=== PATIENT | female | born 1995 | race Two or more races ===

== ENCOUNTER 2018-08-17 02:00 | Emergency (ER) | payer OTHER ==
--- NOTE | 2018-08-17 03:00 | EDPHY ---
H & P Stated Complaint: left forearm lac Time Seen by Provider: 08/17/18 02:06 HPI/ROS: Chief Complaint: Arm laceration HPI: 22-year-old woman sustained a self-inflicted laceration to her left forearm. Patient states she was in an argument with her boyfriend after she found out that he had been cheating on her. Patient admits to drinking 2 shots of alcohol tonight. Patient became upset and caught herself on her left forearm with a kitchen knife while she was washing dishes. Patient states that she cut her arm deeper than she had anticipated. Patient states that she tends to act out of impulse. She does have a history cutting in the past. She absolutely denies being suicidal. She is not want harm herself or others. She only cut herself in he did the moment. No prior suicide attempts. She is scheduled to start seeing a counselor next week. She has not have a history of depression. She is not feeling depressed. She is up-to-date on her tetanus. ROS: 10 systems were reviewed and were negative except those elements noted in the HPI. PMH: Denies Social History: No smoking, occasional alcohol, no recreational drug use Family History: non-contributory Physical Exam: Gen: Awake, Alert, No Distress HEENT: Nose: no rhinorrhea Eyes: PERRLA, EOMI Mouth: Moist mucosa Neck: Supple, no JVD Chest: nontender, lungs clear to auscultation Heart: S1, S2 normal, no murmur Abd: Soft, non-tender, no guarding Back: no CVA tenderness, no midline tenderness Ext: Patient has a deep 8 cm laceration on her left forearm going into the subcutaneous fat and muscle. There is no tendon involvement. I have full range of motion of her flexors without any defect. She has full flexion strength in all of her digits proximally and distally. 2+ radial ulnar pulses. Capillary refills less than 2 sec. Sensation is intact in the radial, median , and ulnar nerve distribution. Skin: no rash Neuro: CN II-XII intact, Sensation grossly intact, Strength 5/5 in bilateral upper and lower extremities - Personal History LMP (Females 10-55): Now Current Tetanus/Diphtheria Vaccine: Unsure Current Tetanus Diphtheria and Acellular Pertussis (TDAP): Unsure - Medical/Surgical History Hx Asthma: No Hx Chronic Respiratory Disease: No Hx Diabetes: No Hx Cardiac Disease: No Hx Renal Disease: No Hx Cirrhosis: No Hx Alcoholism: No Hx HIV/AIDS: No Hx Splenectomy or Spleen Trauma: No Other PMH: denies - Social History Smoking Status: Never smoked Constitutional: Initial Vital Signs Temperature (C) 36.9 C 08/17/18 02:06 Heart Rate 100 08/17/18 02:06 Respiratory Rate 16 08/17/18 02:06 Blood Pressure 123/92 H 08/17/18 02:06 O2 Sat (%) 98 08/17/18 02:06 O2 Delivery Mode Room Air Allergies/Adverse Reactions: No Known Allergies Allergy (Unverified 08/17/18 02:09) Home Medications: Medication Instructions Recorded NK [No Known Home Meds] 08/17/18 Medical Decision Making Procedures: Procedure: Laceration repair. Verbal consent was obtained from the patient. The 8 cm laceration on the left forearm was anesthetized in the usual fashion. The wound was irrigated, draped and explored to its base with a gloved finger. There were no deep structures involved. No tendon injury was identified. The wound was repaired with 14, 4- 0 Ethilon simple interrupted sutures. The wound repair was uncomplicated. The procedure was performed by myself. ED Course/Re-evaluation: Patient presenting with a self-inflicted forearm laceration. Patient admits that she did this Ativan pulse. She denies suicide attempt. She denies being suicidal. Patient states she was angry after the cheating with her boyfriend. She does not want to kill herself. She is excited about leaving tomorrow for a trip for her since 21 sec birthday with her friends. She is hayley for safety. Patient has been given discharge in and wound care instructions. Sutures to be removed in 10 days. Departure - Departure Disposition: Home, Routine, Self-Care Clinical Impression: Forearm laceration Condition: Good Instructions: Laceration (ED), Care For Your Stitches (ED) Additional Instructions: Sutures need to be removed in 10 days. You may return to the emergency department we will remove them for you. Return sooner for increasing redness, discharge from the wound, streaking up your arm, fevers, pain, or any other concerns. Make sure to follow up with your mental health counselor as scheduled next week. Referrals: MENG GOLDEN MD [Primary Care Provider] - As per Instructions
[2018-08-17 03:57] VITALS: BP 112/72
== END 2018-08-17 03:57 | disposition home or self-care (01) ==
PROC: 0HQEXZZ Repair Left Lower Arm Skin, External Approach (ICD-10-PCS; principal; 2018-08-17)
DX: S51.812A Laceration without foreign body of left forearm, initial encounter (principal); X78.8XXA Intentional self-harm by other sharp object, initial encounter; Y93.G1 Activity, food preparation and clean up